=== PATIENT | male | born 1955 | race Caucasian/White ===

== ENCOUNTER 2017-01-12 09:29 | Emergency (ER) | payer OTHER ==
[~2017-01-12] VITALS: Ht 162.6 cm; Wt 96.8 kg
[~2017-01-12 09:29] MED LIST: Folvite PO; K-Dur PO; LISINOPRIL10 MG PO; Librium PO; NAPROSYN500 MG PO; PEN-VEE K,VEET500 MG PO; Thiamine,Vitamin B1 PO; [UNRECOGNIZED DRUG - CODE]
[2017-01-12] MEDS ORDERED: LIBRIUM25 MG PO (09:54)
[2017-01-12] MEDS ORDERED: ZOFRAN4 MG PO (09:54)
[2017-01-12 11:12] VITALS: BP 136/96
== END 2017-01-12 11:19 | disposition home or self-care (01) ==
LOC: EME 09:29
DX: F10.10 Alcohol abuse, uncomplicated (principal); F10.239 Alcohol dependence with withdrawal, unspecified; I10 Essential (primary) hypertension; E78.5 Hyperlipidemia, unspecified; Z87.891 Personal history of nicotine dependence
CPT/HCPCS: 71020; 80048; 84484; 85027; 93005; 99281; 99284; J2060

== ENCOUNTER 2017-06-01 10:47 | Inpatient (IN) | payer OTHER ==
[~2017-06-01] VITALS: Ht 162.6 cm; Wt 95.0 kg
[~2017-06-01 10:47] MED LIST changes: +LIBRIUM25 MG PO; +ZOFRAN4 MG PO
[2017-06-01 11:18] LABS: HEMATOCRIT 43.9 % (38.0-50.0); MCH 32.1 PG (29.0-34.0); MCHC 34.4 G/DL (30.0-36.0); MCV 93.2 FL (86-99); MEAN PLAT.VOLUME 9.3 uM^3 (9.0-12.4); NRBC (%) 0.3 /100 WBC (0-0); PLATELET COUNT 86 K/uL (156-360); RBC DIS.WIDTH-CV 15.2 % (11.8-14.6); RBC DIS.WIDTH-SD 52.3 % (39-53); RED BLOOD COUNT 4.71 M/uL (4.00-5.50); WHITE BLOOD COUNT 6.1 K/uL (4.1-10.2)
[2017-06-01 11:40] LABS: CHLORIDE 91 mEq/L (99-109); POTASSIUM 3.2 mEq/L (3.7-5.4); SODIUM 135 mEq/L (136-147)
[2017-06-01 11:42] LABS: GLUCOSE 140 mg/dL (70-99)
[2017-06-01 11:43] LABS: ANION GAP 23 MEQ/L (2-14)
[2017-06-01 11:45] LABS: SERUM ETHYL ALCOHOL 235 mg/dL
[2017-06-01 11:46] LABS: GFR ESTIMATE (CALCULATED) > 59 mL/min/; UREA NITROGEN (BUN) 3 mg/dL (9-23)
[2017-06-01 11:50] LABS: TROP-I INTERPRETATION NEGATIVE; TROPONIN-I < 0.01 ng/mL (0.0-0.30)
[2017-06-01 13:35] LABS: POINT-OF-CARE METER ID UU13113747
[2017-06-01 13:59] LABS: ALKALINE PHOSPHATASE 179 IU/L (3-129)
[2017-06-01 14:01] LABS: DIRECT BILIRUBIN 0.6 mg/dL (0.0-0.3)
[2017-06-01 14:02] LABS: LIPASE 187 U/L (1.0-51.0)
[2017-06-01 18:14] LABS: MAGNESIUM 1.6 mg/dL (1.3-2.7)
[2017-06-01 19:55] VITALS: BP 160/100
[2017-06-01 21:02] VITALS: BP 181/96
[2017-06-01 21:02] LABS: TROP-I INTERPRETATION NEGATIVE; TROPONIN-I 0.02 ng/mL (0.0-0.30)
[2017-06-01 21:16] VITALS: BP 178/89
[2017-06-02 05:03] VITALS: BP 150/93
[2017-06-02 07:04] LABS: TROP-I INTERPRETATION NEGATIVE; TROPONIN-I 0.03 ng/mL (0.0-0.30)
[2017-06-02 07:08] LABS: ALKALINE PHOSPHATASE 174 IU/L (3-129); ANION GAP 12 MEQ/L (2-14); CHLORIDE 97 MEQ/L (99-109); GFR ESTIMATE (CALCULATED) > 59 mL/min/; GLUCOSE 113 mg/dL (70-99); LIPASE 124 U/L (1.0-51.0); POTASSIUM 3.4 MEQ/L (3.7-5.4); SAMPLE HEMOLYSIS CHECK 0; SAMPLE ICTERIC CHECK 0; SAMPLE LIPEMIA CHECK 0; TOTAL BILIRUBIN 1.3 MG/DL (0.0-1.0); UREA NITROGEN (BUN) 4 mg/dL (9-23)
[2017-06-02 07:11] LABS: SODIUM 142 MEQ/L (136-147)
[2017-06-02 07:46] VITALS: BP 124/73
[2017-06-02 11:58] VITALS: BP 148/96
[2017-06-02] MEDS ORDERED: ALEVE220 MG PO (15:00)
[2017-06-02 15:37] VITALS: BP 142/97
[2017-06-02 20:51] VITALS: BP 137/98
[2017-06-03] VITALS (8 sets, daily range): BP systolic 125–159; BP diastolic 82–96
[2017-06-03 06:41] LABS: ALKALINE PHOSPHATASE 148 IU/L (3-129); ANION GAP 10 MEQ/L (2-14); CHLORIDE 100 MEQ/L (99-109); GFR ESTIMATE (CALCULATED) > 59 mL/min/; GLUCOSE 93 mg/dL (70-99); LIPASE 133 U/L (1.0-51.0); POTASSIUM 3.1 MEQ/L (3.7-5.4); SAMPLE HEMOLYSIS CHECK 0; SAMPLE ICTERIC CHECK 0; SAMPLE LIPEMIA CHECK 0; SODIUM 142 MEQ/L (136-147); TOTAL BILIRUBIN 1.1 MG/DL (0.0-1.0); UREA NITROGEN (BUN) 5 mg/dL (9-23)
[2017-06-03 18:25] LABS: C DIFF TOXIN NEGATIVE (NEGATIVE)
[2017-06-03 18:35] LABS: PROBE CHECK PASS; SPECIMEN PROCESSING CONTROL PASS
[2017-06-04 03:31] VITALS: BP 169/87
[2017-06-04 06:21] LABS: ALKALINE PHOSPHATASE 141 IU/L (3-129); ANION GAP 9 MEQ/L (2-14); CHLORIDE 102 MEQ/L (99-109); GFR ESTIMATE (CALCULATED) > 59 mL/min/; GLUCOSE 90 mg/dL (70-99); LIPASE 134 U/L (1.0-51.0); POTASSIUM 3.2 MEQ/L (3.7-5.4); SAMPLE HEMOLYSIS CHECK 0; SAMPLE ICTERIC CHECK 0; SAMPLE LIPEMIA CHECK 0; SODIUM 142 MEQ/L (136-147); UREA NITROGEN (BUN) 5 mg/dL (9-23)
[2017-06-04 06:23] LABS: TOTAL BILIRUBIN 0.8 MG/DL (0.0-1.0)
[2017-06-04 07:39] VITALS: BP 140/91
[2017-06-04 10:45] VITALS: BP 108/58
[2017-06-04 16:32] VITALS: BP 144/90
[2017-06-04 18:52] VITALS: BP 153/73
[2017-06-04 23:42] VITALS: BP 142/86
[2017-06-05 03:45] VITALS: BP 158/94
[2017-06-05 07:17] LABS: ALKALINE PHOSPHATASE 128 IU/L (3-129); ANION GAP 9 MEQ/L (2-14); CHLORIDE 105 MEQ/L (99-109); GFR ESTIMATE (CALCULATED) > 59 mL/min/; GLUCOSE 90 mg/dL (70-99); POTASSIUM 3.6 MEQ/L (3.7-5.4); SAMPLE HEMOLYSIS CHECK 0; SAMPLE ICTERIC CHECK 0; SAMPLE LIPEMIA CHECK 0; SODIUM 142 MEQ/L (136-147); TOTAL BILIRUBIN 0.7 MG/DL (0.0-1.0); UREA NITROGEN (BUN) 5 mg/dL (9-23)
[2017-06-05 07:20] VITALS: BP 156/104
[2017-06-05 10:13] VITALS: BP 142/92
[2017-06-05 15:36] VITALS: BP 124/71
[2017-06-05 23:06] VITALS: BP 141/73
[2017-06-06 03:40] VITALS: BP 109/93
[2017-06-06 07:00] LABS: ALKALINE PHOSPHATASE 121 IU/L (3-129); ANION GAP 9 MEQ/L (2-14); CHLORIDE 104 MEQ/L (99-109); GFR ESTIMATE (CALCULATED) > 59 mL/min/; GLUCOSE 85 mg/dL (70-99); POTASSIUM 3.6 MEQ/L (3.7-5.4); SAMPLE HEMOLYSIS CHECK 0; SAMPLE ICTERIC CHECK 0; SAMPLE LIPEMIA CHECK 0; SODIUM 141 MEQ/L (136-147); TOTAL BILIRUBIN 0.6 MG/DL (0.0-1.0); UREA NITROGEN (BUN) 5 mg/dL (9-23)
[2017-06-06 08:23] VITALS: BP 122/84
[2017-06-06 12:00] VITALS: BP 119/85
[2017-06-06 16:50] VITALS: BP 131/88
[2017-06-06 23:29] VITALS: BP 136/82
[2017-06-07 07:05] LABS: ALKALINE PHOSPHATASE 111 IU/L (3-129); ANION GAP 9 MEQ/L (2-14); CHLORIDE 108 MEQ/L (99-109); GFR ESTIMATE (CALCULATED) > 59 mL/min/; GLUCOSE 86 mg/dL (70-99); POTASSIUM 4.2 MEQ/L (3.7-5.4); SAMPLE HEMOLYSIS CHECK 1; SAMPLE ICTERIC CHECK 0; SAMPLE LIPEMIA CHECK 0; SODIUM 145 MEQ/L (136-147); TOTAL BILIRUBIN 0.6 MG/DL (0.0-1.0); UREA NITROGEN (BUN) 4 mg/dL (9-23)
[2017-06-07 07:31] VITALS: BP 146/83
[2017-06-07 08:06] LABS: LIPASE 92 U/L (1.0-51.0)
[2017-06-07 16:47] VITALS: BP 135/76
[2017-06-07 23:44] VITALS: BP 158/80
[2017-06-08 06:20] LABS: ALKALINE PHOSPHATASE 104 IU/L (3-129); ANION GAP 7 MEQ/L (2-14); CHLORIDE 106 MEQ/L (99-109); GFR ESTIMATE (CALCULATED) > 59 mL/min/; GLUCOSE 87 mg/dL (70-99); SAMPLE HEMOLYSIS CHECK 0; SAMPLE ICTERIC CHECK 0; SAMPLE LIPEMIA CHECK 0; SODIUM 143 MEQ/L (136-147); TOTAL BILIRUBIN 0.5 MG/DL (0.0-1.0); UREA NITROGEN (BUN) 5 mg/dL (9-23)
[2017-06-08 08:03] VITALS: BP 145/96
[2017-06-08 15:55] VITALS: BP 134/85
[2017-06-08 23:25] VITALS: BP 137/65
[2017-06-09 06:40] VITALS: BP 138/92
[2017-06-09] MEDS ORDERED: FAMOTIDINE20 MG PO (08:02)
[2017-06-09] MEDS ORDERED: FOLIC ACID1 MG PO (08:02)
[2017-06-09] MEDS ORDERED: ESCITALOPRAM OX10 MG PO (08:02)
[2017-06-09] MEDS ORDERED: Thiamine,Vitamin B1 PO (08:02)
== END 2017-06-09 11:15 | disposition home or self-care (01) | DRG 897 ==
LOC: EME 10:47 → 5EAST 16:36 → EDOF 16:36 → 5EAST 20:10
PROVIDERS: Emergency Medicine; Family Medicine; Internal Medicine
DX: F10.231 Alcohol dependence with withdrawal delirium (principal); F34.1 Dysthymic disorder; K75.9 Inflammatory liver disease, unspecified; I10 Essential (primary) hypertension; Z68.35 Body mass index [BMI] 35.0-35.9, adult; E66.01 Morbid (severe) obesity due to excess calories; E87.6 Hypokalemia; D72.829 Elevated white blood cell count, unspecified; R45.851 Suicidal ideations; E78.5 Hyperlipidemia, unspecified; Z83.3 Family history of diabetes mellitus; F32.89 Other specified depressive episodes
CPT/HCPCS: 71020; 74177; 80048; 80053; 80076; 82948; 83690; 83735; 84100; 84484; 85027; 87493; 93005; 94799; 99281; 99285; G0480; J2060; J3411; J7030; J7050